=== PATIENT | female | born 1950 | race Caucasian/White ===

== ENCOUNTER → 2022-01-16 | Outpatient (CLI) | payer MEDICARE, OTHER ==
--- NOTE | 2022-01-16 15:39 | US ---
EXAMINATION TYPE: US carotid duplex BILAT DATE OF EXAM: 01/16/2022 COMPARISON: NONE CLINICAL HISTORY: I65.29 Carotid Stenosis. EXAM MEASUREMENTS: RIGHT: Peak Systolic Velocity (PSV) cm/sec ----- Right CCA: 72.9 ----- Right ICA: 94.4 ----- Right ECA: 88.9 ICA/CCA ratio: 1.3 RIGHT: End Diastole cm/sec ----- Right CCA: 18.0 ----- Right ICA: 31.8 ----- Right ECA: 14.2 LEFT: Peak Systolic Velocity (PSV) cm/sec ----- Left CCA: 59.0 ----- Left ICA: 63.1 ----- Left ECA: 79.7 ICA/CCA ratio: 1.1 LEFT: End Diastole cm/sec ----- Left CCA: 14.5 ----- Left ICA: 27.3 ----- Left ECA: 13.3 VERTEBRALS (direction of flow): Right Vertebral: Antegrade Left Vertebral: Antegrade Rhythm: Normal Mild to moderate atherosclerotic changes with no significant velocity increases seen. IMPRESSION: 1. Atheromatous plaquing without significant flow-limiting stenosis based on velocities. Criteria for Assigning % of Stenosis / Diameter reduction (Estimation based on the indirect measurements of the internal carotid artery velocities (ICA PSV). 1. Normal (no stenosis)=ICA PSV < 125 cm/s: ratio < 2.0: ICA EDV<40 cm/s. 2. Less than 50% stenosis=ICA PSV < 125 cm/s: ratio < 2.0: ICA EDV<40 cm/s. 3. 50 to 69% stenosis=ICA PSV of 125 to 230 cm/s: ration 2.0 ? 4.0: ICA EDV 40-100 cm/s. 4. Greater than 70% stenosis to near occlusion= ICA PSV > 230 cm/s: ratio > 4.0: ICA EDV > 100 cm/s. 5. Near occlusion= ICA PSV velocities may be low or undetectable: variable ratio and ICA EDV. 6. Total occlusion=unable to detect flow.
== END | disposition home or self-care (01) ==
LOC: RADUSWWP 15:02
PROVIDERS: ATTEND Internal Medicine Cardiovascular Disease
DX: I65.23 Occlusion and stenosis of bilateral carotid arteries (principal)
CPT/HCPCS: 93880

== ENCOUNTER → 2022-04-16 | Outpatient (CLI) | payer MEDICARE, OTHER ==
--- NOTE | 2022-04-16 15:03 | CT ---
EXAMINATION TYPE: CT heart w calcium score DATE OF EXAM: 04/16/2022 COMPARISON: HISTORY: Screening for cardiovascular disorder. 213.9 CT DLP: 76.20 mGycm Automated exposure control for dose reduction was used. CT CALCIUM SCORING Coronary calcium is a marker for plaque (fatty deposits) in a blood vessel or atherosclerosis (harden ing of the arteries). The presence and amount of calcium detected in a coronary artery by the CT sca n, indicates the presence and amount of atherosclerotic plaque. These calcium deposits appear years before the development of heart disease symptoms such as chest pain and shortness of breath. A calcium score is computed for each of the coronary arteries based upon the volume and density of th e calcium deposits. This can be referred to as your calcified plaque burden. It does not correspond directly to the percentage of narrowing in the artery but does correlate with the severity of the un derlying coronary atherosclerosis. PROCEDURE TECHNIQUE - Prospective Gating was used. Slice thickness: 3mm. Density threshold (HU): 130, Pixel threshold: 3, Algorithm: discrete. RESULTS Region: LM Calcium Score ([place]): Volume (mm3): Mass (g): Region: RCA Calcium Score ([place]): Volume (mm3): Mass (g): Region: LAD Calcium Score ([place]): 24.09 Volume (mm3): 24.09 Mass (g): 8.03 Region: CX Calcium Score ([place]): 42.32 Volume (mm3): 40.77 Mass (g): 13.59 Region: PDA Calcium Score ([place]): Volume (mm3): Mass (g): Total: Calcium Score ([place]): 66.41 Volume (mm3): 24.09 Mass (g): 21.62 TOTAL CALCIUM SCORE: 66.41 IMPRESSION: Calcium Score: 66.41 Implication: Definite, at least mild atherosclerotic plaque Risk of Coronary Artery Disease: Mild or minimal coronary narrowings likely CALCIUM SCORE IMPLICATION RISK OF C ORONARY ARTERY DISEASE 0 No identifiable plaque Very low, generally less than 5% 1-10 Minimal identifiable plaque Very unlikely, less than 10% 11-100 Definite, at least mild atherosclerotic plaque Mild or m inimal coronary narrowings likely 101-400 Definite, at least moderate atherosclerotic plaque Mild coronary ar derek disease highly likely, significant narrowing possible 401 or Higher Extensive atherosclerotic plaque High lik elihood of at least one significant coronary narrowing
== END | disposition home or self-care (01) ==
LOC: RADCTMAIN 14:07
PROVIDERS: ATTEND Internal Medicine Cardiovascular Disease
DX: I25.10 Atherosclerotic heart disease of native coronary artery without angina pectoris (principal)
CPT/HCPCS: 75571

== ENCOUNTER → 2023-08-16 | Outpatient (CLI) | payer MEDICARE ==
[2023-08-16 19:00] LABS: ALT 20 U/L (8-44); AST 19 U/L (13-35); Albumin 4.2 g/dL (3.8-4.9); Albumin/Globulin Ratio 1.83 Ratio (1.60-3.17); Alkaline Phosphatase 71 U/L (41-126); Bilirubin, Conjugated <0.20 mg/dL (0.20-0.40); Bilirubin,Unconjugated >0.10 mg/dL (0.20-1.00); Globulin 2.3 g/dL (1.6-3.3); Total Bilirubin 0.3 mg/dL (0.3-1.2); Total Protein 6.5 g/dL (6.2-8.2); VLDL Calculation 18.64 mg/dL (5.00-40.00)
== END | disposition home or self-care (01) ==
LOC: LABWHC1 11:47
PROVIDERS: ATTEND Internal Medicine Cardiovascular Disease
DX: I25.10 Atherosclerotic heart disease of native coronary artery without angina pectoris (principal)
CPT/HCPCS: 36415; 80061; 80076

== ENCOUNTER → 2023-09-09 | Outpatient (CLI) | payer MEDICARE, OTHER ==
[2023-09-09 22:20] LABS: T4, Free (Free Thyroxine) 2.97 ng/dL (0.80-1.80)
== END | disposition home or self-care (01) ==
LOC: LABWHC1 14:05
PROVIDERS: ATTEND Internal Medicine Endocrinology, Diabetes & Metabolism
DX: E03.8 Other specified hypothyroidism (principal)
CPT/HCPCS: 36415; 84439; 84443; 84481

== ENCOUNTER → 2025-02-16 | Outpatient (CLI) | payer MEDICARE ==
--- NOTE | 2025-02-16 10:47 | P.SLEEP ---
History of Present Illness DATE: 02/16/2025 CONSULTATION/NEW PATIENT EVALUATION HISTORY OF PRESENT ILLNESS/SLEEP-WAKE EVALUATION: 74-year-old lady had been ev aluated in the sleep center for possible obstructive sleep apnea hypopnea syndrome. SLEEP SCHEDULE: Usually sleep schedule 1 PM to 7 AM and patient gets out of bed around 9 AM. FALLING ASLEEP: Usually no significant problems with falling asleep. DURING SLEEP: Patient wakes up from sleep up to 5 times with up to 4 episodes of nocturia. Positive history of palpitations, heartburn, sweating no history of hypnogogical hallucinations, sleep paralysis, or cataplexy. DURING THE DAY/WAKE STATE: In the morning patient wake up tired, has problems with memory, irritability, anxiety, falling asleep during the day. Cooter sleepiness scale is borderline 9. Patient takes 1 nap during the day. PAST MEDICAL HISTORY: Episodes of tachycardia, under evaluation for possibility of atrial fibrillation, fibromyalgia, hypothyroidism, Kevin thyroiditis, hypertension. PAST SURGICAL HISTORY: Low back surgery, surgical treatment for nasal septal deviation. MEDICATIONS: Wellbutrin 150 mg once a day, Thompson thyroid 10 mg twice a day, metoprolol 25 mg twice a day, aspirin 81 mg once a day. SOCIAL HISTORY: Please see below. FAMILY HISTORY: Please see below. REVIEW OF SYSTEMS: Multiple awakenings from sleep, sleepiness during the day. No fevers. No double vision. No recent chest pain. No shortness of breath. No abdominal pain. No bleeding episodes. No blood in urine. No seizure episodes. PHYSICAL EXAMINATION: GENERAL: A pleasant patient without any distress. VITAL SIGNS: BP 172/91, HR 61, RR 12, weight 163 pounds, height 5 foot 0.5 inches, body mass index 31.3. HEENT: PERRLA, EOMI. Evaluation of oropharynx showed tongue protrudes midline, low position of soft palate Mallampati 4, retrognathia 2 mm, restriction of nasal breathing. NECK: Supple. No JVD. Thyroid is not palpable. 14-3/4 inches in circumference. LUNGS: Clear to percussion and to auscultation. Good air exchange. No wheezing or rhonchi. HEART: S1, S2 regular. No murmurs, gallops or rubs. ABDOMEN: Soft and nontender. Bowel sounds are present. No organomegaly appreciated. EXTREMITIES: No clubbing or cyanosis. 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 Cranial nerves 2 to 7 intact. There is no fasciculation or atrophy noted. No focal deficits observed. ASSESSMENT: 1. Multiple awakenings from sleep, extremely low position of soft palate Mallampati 4, retrognathia, restriction of nasal breathing. Obstructive sleep apnea hypopnea syndrome. 2. Obesity, BMI 31.3. 3. Hypertension. 4. History of Kevin thyroiditis, hypothyroidism. 5 history of episodes of tachycardia, under evaluation for possibility of atrial fibrillation episodes. 6 . Fibromyalgia. 7. Status post surgical treatment for nasal septum deviation. 8. Status post low back surgery x 2. PLAN: 1. Polysomnography for evaluation of patient's breathing during sleep. 2. Following plan after reading sleep study. 3. Preferable position during sleep on the side. 4. No driving if patient feels any sleepiness. Patient is aware of civil and criminal liability for unsafe driving. 5. Sleep hygiene with regular sleep time for at least 7.5-8 hours. 6. Watching weight. Thank you very much for referring this patient for consultation. Sincerely, Lars Barger MD, PhD, FAASM. Diplomat of [place] [employer], Sleep Medicine Board by [place] [employer] [place] [employer] In[employer] of [facility] [place] cc: Ratna Reyes MD Past Medical History Past Medical History: Fibromyalgia, Thyroid Disorder Additional Past Medical History / Comment(s): pt may have had a stroke in her eye History of Any Multi-Drug Resistant Organisms: None Reported Past Surgical History: Back Surgery, Orthopedic Surgery Past Anesthesia/Blood Transfusion Reactions: No Reported Reaction Past Psychological History: No Psychological Hx Reported Smoking Status: Former smoker Past Alcohol Use History: Occasional Past Drug Use History: None Reported Medications and Allergies Home Medications Medication Instructions Recorded Confirmed Type Aspirin [Adult Low Dose Aspirin EC] 81 mg PO 02/16/25 History Metoprolol Tartrate [Lopressor] 25 mg PO BID 02/16/25 02/16/25 History Thyroid,Pork [Thompson Thyroid] 90 mg PO BID 02/16/25 02/16/25 History buPROPion HCL [Wellbutrin XL] 150 mg PO DAILY 02/16/25 02/16/25 History Sleep Note - Sleep Data ESS Total: 9 - Sleep Note Sleep Note: Temperature: Pulse Rate: Respiratory Rate: Blood Pressure: SpO2: Height: Weight: BMI: Neck Circumference:
== END ==
LOC: 3 N SLEEP 09:58
PROVIDERS: ATTEND Internal Medicine
DX: G47.33 Obstructive sleep apnea (adult) (pediatric) (principal); M26.19 Other specified anomalies of jaw-cranial base relationship; E66.9 Obesity, unspecified; I10 Essential (primary) hypertension; M79.7 Fibromyalgia; E03.9 Hypothyroidism, unspecified; Z86.39 Personal history of other endocrine, nutritional and metabolic disease; Z86.79 Personal history of other diseases of the circulatory system; Z98.890 Other specified postprocedural states; Z68.31 Body mass index [BMI] 31.0-31.9, adult
CPT/HCPCS: 99211